=== PATIENT | male | born 1970 | race Caucasian/White ===

== ENCOUNTER 2016-09-12 07:26 | Day surgery (SDC) | payer OTHER ==
[2016-09-12] MEDS ORDERED: LACTATED RINGERS 1,000 ML IV ONE ×2 (08:05→09:20)
[2016-09-12] MEDS ORDERED: fentaNYL 100 MCG/2 ML VIAL IVP ONE (08:36)
[2016-09-12] MEDS ORDERED: MIDAZOLAM 2 MG/2 ML VIAL IVP ONE (08:36)
== END 2016-09-12 07:27 | disposition home or self-care (01) ==
PROC: 0DB58ZX Excision of Esophagus, Via Natural or Artificial Opening Endoscopic, Diagnostic (ICD-10-PCS; principal; 2016-09-12 08:30)
DX: R13.10 Dysphagia, unspecified (principal); K21.9 Gastro-esophageal reflux disease without esophagitis; R12 Heartburn
CPT/HCPCS: 43239; J7120